=== PATIENT | female | born 1955 | race African-American/Black ===

== ENCOUNTER 2017-04-07 09:24 | Inpatient (IN) | payer MEDICAID ==
[~2017-04-07] VITALS: Ht 167.6 cm; Wt 72.4 kg
[~2017-04-07 09:24] MED LIST: ASPI81TA10; ATOR20TA50; CHOL200031; CLIN1CAP3; HYDR-2652; LISI-646; MELO-86; METO25TA62; TRAM50TA2
[2017-04-07] MEDS ORDERED: SODIUM CHLORIDE 0.9% 1,000 ML IVB ONE (09:53)
[2017-04-07 10:36] LABS: INR 0.89 (0.9-1.15); Partial Thromboplastin Time 22.2 sec (22.64-33.71); Prothrombin Time 9.7 sec (9.37-12.3)
[2017-04-07 10:38] LABS: Basophils # (auto) 0 uL; Basophils % (auto) 0.3 % (0.0-2.0); DEFINITIVE VIEW TRANSMISSION; Eosinophils # (auto) 0.1 uL; Eosinophils % (auto) 1.9 % (0.0-7.0); Hematocrit 36.3 % (36.0-46.0); Lymphocytes # (auto) 1.8 uL; Lymphocytes % (auto) 29.8 % (10.0-50.0); Mean Corpuscular Hemoglobin 25.6 pg (28.0-32.0); Mean Corpuscular Volume 77.7 fL (80.0-100.0); Mean Platelet Volume 8.7 fL (7.4-10.4); Monocytes # (auto) 0.3 uL; Monocytes % (auto) 4.4 % (0.0-12.0); Neutrophils # (auto) 3.9 uL; Neutrophils % (auto) 63.6 % (37.0-80.0); Platelet Count (auto) 343 10^3/uL (140-450); Red Cell Distribution Width 15.9 % (11.6-16.0); SUSPECT VIEW TRANSMISSION; White Blood Cell 6.2 10^3/uL (4.4-10.8)
[2017-04-07 10:38] LABS: Urine Bilirubin Negative (Negative); Urine Blood TRACE /uL (Negative); Urine Color Yellow (Yellow); Urine Glucose Normal (Normal); Urine Ketone Negative (Negative); Urine Nitrite Negative (Negative); Urine RBC 1 /hpf (0 - 4); Urine Squamous Epithelial Cell FEW /hpf (<5); Urine Urobilinogen Normal (Negative)
[2017-04-07 10:49] LABS: Albumin 3.5 g/dL (3.4-5.0); BUN/Creatinine Ratio 16.3; Bilirubin, Total 0.2 mg/dL (0.2-1.0); Calcium 9.1 mg/dL (8.5-10.1); Magnesium 2.5 mg/dL (1.6-2.6); Potassium 4.4 mmol/L (3.5-5.1)
[2017-04-07] MEDS ORDERED: LACTULOSE 20Gm/30ML SOLN PO ONE (12:00)
[2017-04-07] MEDS ORDERED: NITROGLYCERIN 0.4 MG SL TAB SL PRN (13:30)
[2017-04-07] MEDS ORDERED: LACTULOSE 20Gm/30ML SOLN PO PRN (13:30)
[2017-04-07] MEDS ORDERED: TEMAZEPAM 15 MG CAP PO PRN (13:30)
[2017-04-07] MEDS ORDERED: MORPHINE SULF INJ 2 MG/ML SYRINGE 1ML IV PRN ×2 (13:30)
[2017-04-07] MEDS ORDERED: DOCUSATE SOD 100 MG CAP PO PRN (13:30)
[2017-04-07] MEDS ORDERED: traMADol HCL 50 MG TAB PO PRN (13:45)
[2017-04-07] MEDS: SODIUM CHLOR 0.9% PF (SALINE LOCK) 10ML VIAL IV SCH ×2 (14:00→22:28)
[2017-04-07] MEDS: diphenhdrAMINE HCL 50 MG/1 ML VL IV PRN ×2 (17:16→22:44)
[2017-04-07] MEDS: FAMOTIDINE 20 MG TAB PO SCH ×2 (17:16→21:31)
[2017-04-07 19:12] LABS: Hematocrit 37.6 % (36.0-46.0); Hemoglobin 12.5 g/dL (12.2-16.2)
[2017-04-07 20:00] VITALS: BP 156/69
[2017-04-07] MEDS: hydrALAZINE HCL 25 MG TAB PO SCH (21:31)
[2017-04-07] MEDS: ATORVASTATIN 20 MG TAB PO SCH (21:31)
[2017-04-07 22:13] VITALS: BP 156/69
[2017-04-08] VITALS (7 sets, daily range): BP systolic 131–169; BP diastolic 59–69
[2017-04-08] MEDS: SODIUM CHLOR 0.9% PF (SALINE LOCK) 10ML VIAL IV SCH ×3 (05:22→21:22)
[2017-04-08 06:15] LABS: Basophils # (auto) 0 uL; Basophils % (auto) 0.3 % (0.0-2.0); DEFINITIVE VIEW TRANSMISSION; Eosinophils # (auto) 0.1 uL; Eosinophils % (auto) 0.9 % (0.0-7.0); Hematocrit 34.8 % (36.0-46.0); Hemoglobin 11.4 g/dL (12.2-16.2); Lymphocytes # (auto) 2.1 uL; Lymphocytes % (auto) 31.6 % (10.0-50.0); Mean Corpuscular Hemoglobin 25.8 pg (28.0-32.0); Mean Corpuscular Hgb Conc. 32.8 g/dL (32.0-36.0); Mean Corpuscular Volume 78.5 fL (80.0-100.0); Mean Platelet Volume 8.8 fL (7.4-10.4); Monocytes # (auto) 0.3 uL; Monocytes % (auto) 5.1 % (0.0-12.0); Neutrophils % (auto) 62.1 % (37.0-80.0); Platelet Count (auto) 386 10^3/uL (140-450); Red Cell Distribution Width 16.3 % (11.6-16.0); White Blood Cell 6.5 10^3/uL (4.4-10.8)
[2017-04-08 06:37] LABS: Potassium 4.1 mmol/L (3.5-5.1)
[2017-04-08 06:44] LABS: Albumin 3.1 g/dL (3.4-5.0); BUN/Creatinine Ratio 17.3
[2017-04-08 06:47] LABS: Bilirubin, Total 0.3 mg/dL (0.2-1.0); Total Protein 6.4 g/dL (6.4-8.2)
[2017-04-08] MEDS: diphenhdrAMINE HCL 50 MG/1 ML VL IV PRN (10:28)
[2017-04-08] MEDS: CHOLECALCIFEROL (VITD3) 1,000 UNIT TAB PO SCH (10:33)
[2017-04-08] MEDS: LISINOPRIL 20 MG TAB PO SCH (10:34)
[2017-04-08] MEDS: hydrALAZINE HCL 25 MG TAB PO SCH ×2 (10:34→21:21)
[2017-04-08] MEDS: METOPROLOL SUCCINATE XL 50 MG TAB PO SCH (10:35)
[2017-04-08] MEDS: FAMOTIDINE 20 MG TAB PO SCH (10:35)
[2017-04-08] MEDS: MULTIPLE VITAMIN TAB PO SCH (10:35)
[2017-04-08] MEDS ORDERED: GOLYTELY 4L KIT PO ONE (12:00)
[2017-04-08] MEDS ORDERED: PANTOPRAZOLE 40 MG TAB PO SCH (12:06)
[2017-04-08] MEDS: ATORVASTATIN 20 MG TAB PO SCH (21:21)
[2017-04-09] VITALS (8 sets, daily range): BP systolic 130–195; BP diastolic 52–90
[2017-04-09] MEDS: SODIUM CHLOR 0.9% PF (SALINE LOCK) 10ML VIAL IV SCH ×3 (05:56→21:47)
[2017-04-09 07:49] LABS: Basophils # (auto) 0 uL; Basophils % (auto) 0.3 % (0.0-2.0); DEFINITIVE VIEW TRANSMISSION; Eosinophils # (auto) 0.1 uL; Hematocrit 35.9 % (36.0-46.0); Hemoglobin 11.8 g/dL (12.2-16.2); Lymphocytes # (auto) 1.9 uL; Lymphocytes % (auto) 30.3 % (10.0-50.0); Mean Corpuscular Hemoglobin 25.8 pg (28.0-32.0); Mean Corpuscular Volume 78.3 fL (80.0-100.0); Mean Platelet Volume 8.7 fL (7.4-10.4); Monocytes # (auto) 0.2 uL; Neutrophils % (auto) 64.4 % (37.0-80.0); Platelet Count (auto) 345 10^3/uL (140-450); White Blood Cell 6.2 10^3/uL (4.4-10.8)
[2017-04-09 08:12] LABS: Potassium 4.1 mmol/L (3.5-5.1)
[2017-04-09 08:16] LABS: BUN/Creatinine Ratio 14.9
[2017-04-09] MEDS ORDERED: SODIUM CHLORIDE LOCK 0 ML ONE (08:17)
[2017-04-09] MEDS ORDERED: diphenhdrAMINE HCL 50 MG/1 ML VL ONE (08:18)
[2017-04-09] MEDS ORDERED: MIDAZOLAM HCL 5 MG/ML-1ML VIAL ONE (08:18)
[2017-04-09] MEDS ORDERED: fentaNYL CITRATE 100 MCG/2 ML VL ONE (08:18)
[2017-04-09] MEDS: CHOLECALCIFEROL (VITD3) 1,000 UNIT TAB PO SCH (10:00)
[2017-04-09] MEDS: LISINOPRIL 20 MG TAB PO SCH (10:44)
[2017-04-09] MEDS: METOPROLOL SUCCINATE XL 50 MG TAB PO SCH (10:45)
[2017-04-09] MEDS: MULTIPLE VITAMIN TAB PO SCH (10:46)
[2017-04-09] MEDS: hydrALAZINE HCL 25 MG TAB PO SCH ×2 (10:47→21:47)
[2017-04-09] MEDS: PANTOPRAZOLE SODIUM 40 MG/10 ML VIAL IV SCH (10:47)
[2017-04-09] MEDS ORDERED: LABETALOL HCL 5 MG/ML 4ML SYRINGE IV PRN (12:45)
[2017-04-09] MEDS: ATORVASTATIN 20 MG TAB PO SCH (21:48)
[2017-04-09] MEDS: diphenhdrAMINE HCL 50 MG/1 ML VL IV PRN (22:02)
[2017-04-10 05:00] VITALS: BP 149/69
[2017-04-10] MEDS: SODIUM CHLOR 0.9% PF (SALINE LOCK) 10ML VIAL IV SCH ×3 (05:55→21:36)
[2017-04-10 06:42] LABS: Basophils # (auto) 0 uL; Basophils % (auto) 0.2 % (0.0-2.0); DEFINITIVE VIEW TRANSMISSION; Eosinophils # (auto) 0.1 uL; Hematocrit 34.8 % (36.0-46.0); Hemoglobin 11.5 g/dL (12.2-16.2); Lymphocytes # (auto) 1.8 uL; Lymphocytes % (auto) 27.1 % (10.0-50.0); Mean Corpuscular Hemoglobin 25.7 pg (28.0-32.0); Mean Corpuscular Volume 77.9 fL (80.0-100.0); Mean Platelet Volume 8.8 fL (7.4-10.4); Monocytes # (auto) 0.3 uL; Monocytes % (auto) 4.6 % (0.0-12.0); Neutrophils # (auto) 4.4 uL; Neutrophils % (auto) 67.1 % (37.0-80.0); Platelet Count (auto) 364 10^3/uL (140-450); White Blood Cell 6.5 10^3/uL (4.4-10.8)
[2017-04-10 07:04] LABS: BUN/Creatinine Ratio 14.7; Calcium 8.9 mg/dL (8.5-10.1); Potassium 3.6 mmol/L (3.5-5.1)
[2017-04-10 08:00] VITALS: BP 157/59
[2017-04-10 09:00] VITALS: BP 135/71
[2017-04-10] MEDS: METOPROLOL SUCCINATE XL 50 MG TAB PO SCH (09:23)
[2017-04-10] MEDS: hydrALAZINE HCL 25 MG TAB PO SCH ×2 (09:23→21:36)
[2017-04-10] MEDS: LISINOPRIL 20 MG TAB PO SCH (09:23)
[2017-04-10] MEDS: PANTOPRAZOLE SODIUM 40 MG/10 ML VIAL IV SCH (09:31)
[2017-04-10] MEDS ORDERED: NALOXONE HCL 0.4 MG/ML VIAL ONE (10:15)
[2017-04-10] MEDS ORDERED: SODIUM CHLORIDE LOCK 10 ML ONE (10:15)
[2017-04-10] MEDS ORDERED: FLUMAZENIL 0.1 MG/ML INJ 10ML MDV IV ONE (10:15)
[2017-04-10] MEDS ORDERED: diphenhdrAMINE HCL 50 MG/1 ML VL ONE (10:16)
[2017-04-10] MEDS: fentaNYL CITRATE 100 MCG/2 ML VL ONE ×2 (11:37→11:41)
[2017-04-10] MEDS: MIDAZOLAM HCL 5 MG/ML-1ML VIAL ONE ×2 (11:37→11:41)
[2017-04-10 13:00] VITALS: BP 115/88
[2017-04-10] MEDS: MULTIPLE VITAMIN TAB PO SCH (15:22)
[2017-04-10] MEDS: CHOLECALCIFEROL (VITD3) 1,000 UNIT TAB PO SCH (15:22)
[2017-04-10] MEDS: ONDANSETRON HCL 4 MG/2 ML VIAL IV PRN ×2 (15:34→20:37)
[2017-04-10 20:00] VITALS: BP 143/43
[2017-04-10] MEDS: ATORVASTATIN 20 MG TAB PO SCH (21:37)
[2017-04-10] MEDS: diphenhdrAMINE HCL 50 MG/1 ML VL IV PRN (21:37)
[2017-04-10 22:00] VITALS: BP 143/43
[2017-04-11 05:00] VITALS: BP 144/51
[2017-04-11] MEDS: SODIUM CHLOR 0.9% PF (SALINE LOCK) 10ML VIAL IV SCH (05:40)
[2017-04-11 07:51] LABS: Basophils # (auto) 0 uL; Basophils % (auto) 0.4 % (0.0-2.0); DEFINITIVE VIEW TRANSMISSION; Eosinophils # (auto) 0.1 uL; Eosinophils % (auto) 2.2 % (0.0-7.0); Hematocrit 32.8 % (36.0-46.0); Hemoglobin 10.6 g/dL (12.2-16.2); Lymphocytes # (auto) 1.8 uL; Lymphocytes % (auto) 32.9 % (10.0-50.0); Mean Corpuscular Hemoglobin 25.4 pg (28.0-32.0); Mean Corpuscular Hgb Conc. 32.3 g/dL (32.0-36.0); Mean Corpuscular Volume 78.6 fL (80.0-100.0); Mean Platelet Volume 8.8 fL (7.4-10.4); Monocytes # (auto) 0.4 uL; Monocytes % (auto) 7.2 % (0.0-12.0); Neutrophils # (auto) 3.2 uL; Neutrophils % (auto) 57.3 % (37.0-80.0); Platelet Count (auto) 332 10^3/uL (140-450); Red Cell Distribution Width 16.2 % (11.6-16.0); White Blood Cell 5.5 10^3/uL (4.4-10.8)
[2017-04-11 08:00] LABS: BUN/Creatinine Ratio 15.2; Calcium 8.5 mg/dL (8.5-10.1)
[2017-04-11 09:00] VITALS: BP 157/81
[2017-04-11] MEDS: PANTOPRAZOLE SODIUM 40 MG/10 ML VIAL IV SCH ×2 (09:40→09:58)
[2017-04-11] MEDS: CHOLECALCIFEROL (VITD3) 1,000 UNIT TAB PO SCH (09:40)
[2017-04-11] MEDS: MULTIPLE VITAMIN TAB PO SCH (09:41)
[2017-04-11] MEDS: hydrALAZINE HCL 25 MG TAB PO SCH (09:41)
[2017-04-11] MEDS: METOPROLOL SUCCINATE XL 50 MG TAB PO SCH (09:42)
[2017-04-11] MEDS: LISINOPRIL 20 MG TAB PO SCH (09:42)
[2017-04-11] MEDS: diphenhdrAMINE HCL 50 MG/1 ML VL IV PRN (09:43)
[2017-04-11] MEDS ORDERED: diphenhdrAMINE HCL 25 MG CAP PO PRN (10:00)
[2017-04-11] MEDS ORDERED: PANTOPRAZOLE 40 MG TAB PO SCH (10:00)
== END 2017-04-11 13:05 | disposition home or self-care (01) | DRG 254 ==
LOC: ER 09:24 → TELE 09:25 → TELE-E-ADS 15:01 → TELE-WESTW 18:20
PROVIDERS: ADMIT Internal Medicine; ATTEND Internal Medicine
PROC: 0DBP8ZX Excision of Rectum, Via Natural or Artificial Opening Endoscopic, Diagnostic (ICD-10-PCS; 2017-04-10)
PROC: 0DBN8ZX Excision of Sigmoid Colon, Via Natural or Artificial Opening Endoscopic, Diagnostic (ICD-10-PCS; principal; 2017-04-10 11:34)
DX: K64.8 Other hemorrhoids (principal); I13.10 Hypertensive heart and chronic kidney disease without heart failure, with stage 1 through stage 4 chronic kidney disease, or unspecified chronic kidney disease; I69.354 Hemiplegia and hemiparesis following cerebral infarction affecting left non-dominant side; E78.5 Hyperlipidemia, unspecified; N18.2 Chronic kidney disease, stage 2 (mild); K57.30 Diverticulosis of large intestine without perforation or abscess without bleeding; D63.8 Anemia in other chronic diseases classified elsewhere; K59.00 Constipation, unspecified; Z87.891 Personal history of nicotine dependence; Z82.49 Family history of ischemic heart disease and other diseases of the circulatory system; Z83.3 Family history of diabetes mellitus; Z87.11 Personal history of peptic ulcer disease; Z88.6 Allergy status to analgesic agent; Z88.8 Allergy status to other drugs, medicaments and biological substances; Z79.82 Long term (current) use of aspirin; Z71.89 Other specified counseling; Z88.0 Allergy status to penicillin; Z91.041 Radiographic dye allergy status
CPT/HCPCS: 36415; 45380; 71010; 74176; 80048; 80053; 81001; 83690; 83735; 84443; 85014; 85018; 85025; 85610; 85730; 93005; 94761; 96361; 96374; 97163; C9113; J2250; J2405; J3490

== ENCOUNTER 2022-11-18 16:22 | Emergency (ER) | payer OTHER, MEDICAID ==
[~2022-11-18] VITALS: Ht 170.2 cm; Wt 77.9 kg
[~2022-11-18 16:22] MED LIST changes: -ASPI81TA10; -ATOR20TA50; -CLIN1CAP3; -HYDR-2652; +HYDR50TA15; -LISI-646; +LISI20TA28; -MELO-86; -METO25TA62; +METO25TA93; -TRAM50TA2
[2022-11-18 17:04] VITALS: BP 181/88
[2022-11-18] MEDS ORDERED: traMADol HCL 50 MG TAB PO ONE (17:15)
[2022-11-18] MEDS ORDERED: TRAM-297 PO (17:33)
== END 2022-11-18 17:40 | disposition home or self-care (01) ==
LOC: ER 16:26
DX: S16.1XXA Strain of muscle, fascia and tendon at neck level, initial encounter (principal); M50.30 Other cervical disc degeneration, unspecified cervical region; M47.812 Spondylosis without myelopathy or radiculopathy, cervical region; I10 Essential (primary) hypertension; E78.5 Hyperlipidemia, unspecified; Z86.73 Personal history of transient ischemic attack (TIA), and cerebral infarction without residual deficits; Z87.891 Personal history of nicotine dependence; Z79.899 Other long term (current) drug therapy; Z88.8 Allergy status to other drugs, medicaments and biological substances; V49.9XXA Car occupant (driver) (passenger) injured in unspecified traffic accident, initial encounter; Y93.89 Activity, other specified; Y92.410 Unspecified street and highway as the place of occurrence of the external cause; Y99.8 Other external cause status
CPT/HCPCS: 72040